=== PATIENT | female | born 1995 | race Caucasian/White ===

== ENCOUNTER 2018-06-30 15:25 | Emergency (ER) | payer BC ==
[~2018-06-30] VITALS: Ht 152.4 cm; Wt 54.4 kg
[2018-06-30] MEDS ORDERED: LET TOPICAL SOLUTION 8 ML UDC ONE (15:40)
[2018-06-30] MEDS: LET TOPICAL SOLUTION 8 ML UDC TP ONE (15:41)
[2018-06-30] MEDS ORDERED: CEFTRIAXONE 1 G VIAL ONE (16:04)
[2018-06-30] MEDS ORDERED: LIDOCAINE HCL 1% 20 ML VIAL ONE (16:04)
[2018-06-30] MEDS: LIDOCAINE HCL 2% 20 ML VIAL TP ONE (16:14)
[2018-06-30] MEDS: CEFTRIAXONE 1 G VIAL IM ONE (16:15)
--- NOTE | 2018-06-30 16:15 | NUR ---
Patient discharged to home in stable conditon. Written and verbal after care instructions given to patient's father. Patient's family verbalized understanding of instructions.
== END 2018-06-30 16:16 | disposition home or self-care (01) ==
LOC: ER 15:45
DX: S51.011A Laceration without foreign body of right elbow, initial encounter (principal); W18.30XA Fall on same level, unspecified, initial encounter; Y93.89 Activity, other specified; Y92.89 Other specified places as the place of occurrence of the external cause; Y99.8 Other external cause status
CPT/HCPCS: 12002; 96372; 99283; J0696; J3490; A4217; A4663

== ENCOUNTER 2018-07-02 14:56 | Emergency (ER) | END 2018-07-02 15:47 | disposition home or self-care (01) | DX: T81.40XA Infection following a procedure, unspecified, initial encounter (principal) | CPT/HCPCS: 96372; 99283; J3490 ==

== ENCOUNTER 2018-07-03 14:07 | Emergency (ER) | payer BC ==
[~2018-07-03] VITALS: Ht 152.4 cm; Wt 54.4 kg
[2018-07-03] MEDS ORDERED: NEOMY/BACITRA/POLYMYXIN B OINT UD PACKET TP ONE ×2 (14:45→14:57)
--- NOTE | 2018-07-03 14:49 | NUR ---
PT IS IN ROOM #2A. DR MEDINA EVALUATED THE PT.
--- NOTE | 2018-07-03 14:53 | NUR ---
PT WAS D/C'D TO HOME. D/C INSTRUCTIONS GIVEN TO THE PT.
[2018-07-03 14:54] VITALS: BP 128/69
== END 2018-07-03 15:10 | disposition home or self-care (01) ==
LOC: ER 14:10
DX: T81.40XA Infection following a procedure, unspecified, initial encounter (principal)
CPT/HCPCS: A4663

== ENCOUNTER 2018-07-08 16:48 | Emergency (ER) | payer SELFPAY ==
[~2018-07-08] VITALS: Ht 149.9 cm; Wt 49.0 kg
[2018-07-08] MEDS ORDERED: CEPH-570 PO (17:05)
[2018-07-08] MEDS ORDERED: CLIN300C11 PO (17:05)
--- NOTE | 2018-07-08 17:10 | NUR ---
Dr Olivares at the bedside, and sutures from Rt elbow removed by . Pt tolorated well.
--- NOTE | 2018-07-08 17:30 | NUR ---
Dressing applied to Rt elbow per MD request.
[2018-07-08 17:35] VITALS: BP 110/65
--- NOTE | 2018-07-08 17:37 | NUR ---
Patient discharged to home in stable conditon. Written and verbal after care instructions given. Patient verbalizes understanding of instructions. Pt left Er accompained by father.
== END 2018-07-08 17:38 | disposition home or self-care (01) ==
LOC: ER 16:49
DX: S51.011D Laceration without foreign body of right elbow, subsequent encounter (principal); Z79.2 Long term (current) use of antibiotics; X58.XXXD Exposure to other specified factors, subsequent encounter
CPT/HCPCS: A4663